=== PATIENT | male | born 1970 | race Caucasian/White ===

== ENCOUNTER 2021-12-23 12:32 | Outpatient (CLI) | payer OTHER | END 2021-12-23 12:33 | disposition home or self-care (01) | LOC: BICRAD 12:32 | PROVIDERS: ATTEND Family Medicine | DX: M25.562 Pain in left knee (principal); M77.8 Other enthesopathies, not elsewhere classified; M25.462 Effusion, left knee; M18.12 Unilateral primary osteoarthritis of first carpometacarpal joint, left hand ==

== ENCOUNTER 2023-01-23 12:06 | Outpatient (CLI) | payer OTHER | END 2023-01-23 12:07 | disposition home or self-care (01) | LOC: BICULT 12:06 | PROVIDERS: ATTEND Family Medicine | DX: R59.0 Localized enlarged lymph nodes (principal) | CPT/HCPCS: 76999 ==

== ENCOUNTER 2023-02-03 17:30 | Outpatient (CLI) | payer OTHER | END 2023-02-03 17:31 | disposition home or self-care (01) | LOC: SLEEPLAB 17:30 | PROVIDERS: ATTEND Family Medicine | DX: G47.33 Obstructive sleep apnea (adult) (pediatric) (principal); R53.83 Other fatigue; E66.9 Obesity, unspecified; R06.83 Snoring | CPT/HCPCS: 95800 ==

== ENCOUNTER 2023-07-09 07:52 | Outpatient (CLI) | payer OTHER ==
[2023-07-09] MEDS ORDERED: Iopamidol 370 76% 100 ML VIAL ONE (13:26)
== END 2023-07-09 07:53 | disposition home or self-care (01) ==
LOC: CT 07:52
PROVIDERS: ATTEND Family Medicine
DX: R59.0 Localized enlarged lymph nodes (principal); E27.9 Disorder of adrenal gland, unspecified; R16.1 Splenomegaly, not elsewhere classified; D73.89 Other diseases of spleen
CPT/HCPCS: 71260; 74177; Q9967

== ENCOUNTER 2023-12-03 10:15 | Outpatient (CLI) | payer OTHER | END 2023-12-03 10:16 | LOC: PET 10:15 | PROVIDERS: ATTEND Internal Medicine Hematology & Oncology | DX: C82.08 Follicular lymphoma grade I, lymph nodes of multiple sites (principal); R59.0 Localized enlarged lymph nodes | CPT/HCPCS: 78815; A9552 ==

== ENCOUNTER 2024-05-26 10:15 | Outpatient (CLI) | payer BC | END 2024-05-26 10:16 | disposition home or self-care (01) | LOC: PET 10:15 | PROVIDERS: ATTEND Internal Medicine Hematology & Oncology | DX: C82.08 Follicular lymphoma grade I, lymph nodes of multiple sites (principal); R59.0 Localized enlarged lymph nodes | CPT/HCPCS: 78815; A9552 ==